=== PATIENT | male | born 1985 | race African-American/Black ===

== ENCOUNTER 2025-08-23 13:03 | Inpatient (IN) | payer OTHER, SELFPAY ==
[~2025-08-23] VITALS: Ht 188 cm; Wt 90.9 kg
[2025-08-23] MEDS: SODIUM CHLORIDE 0.9% 1,000 ML IV ONE (13:48)
[2025-08-23] MEDS: PANTOPRAZOLE SODIUM 40 MG/VIAL IVP ONE (13:48)
[2025-08-23 13:56] LABS: PLATELET COUNT (AUTO) 329 K/uL (150-450); RED BLOOD CELL COUNT(AUTO) 3.38 MIL/uL (4.50-5.90); RED CELL DISTRIBUTION WIDTH 18.8 % (11.5-14.5); WHITE BLOOD COUNT (AUTO) 4.2 K/uL (4.5-11.0)
[2025-08-23 14:02] LABS: CALCIUM, TOTAL 8.6 mg/dL (8.8-10.5); CREATININE 0.86 mg/dL (0.60-1.30); GLOMERULAR FILTR. RATE CALC > 60 mL/min (>60); GLUCOSE,RANDOM 87 mg/dL (70-110); SODIUM SERUM 135 mmol/L (136-145); UREA NITROGEN, BLOOD 12 mg/dL (7-18)
[2025-08-23 14:07] LABS: ASPARTATE AMINOTRANSFERASE 18.0 U/L (15-37); TOTAL PROTEIN, SERUM 6.8 g/dL (6.4-8.2)
[2025-08-23 14:09] LABS: APPEARANCE,URINE CLEAR (CLEAR); GLUCOSE, URINE (UA) NEGATIVE (NEGATIVE); LEUKOCYTE ESTERASE ,URINE NEGATIVE (NEGATIVE); NITRATE,URINE NEGATIVE (NEGATIVE); OCCULT BLOOD,URINE NEGATIVE (NEGATIVE); SPECIFIC GRAVITIY, URINE 1.012 (1.003-1.030)
[2025-08-23] MEDS ORDERED: ONDANSETRON HCL 4 MG/2 ML VIAL IVP PRN (17:15)
[2025-08-23 18:28] VITALS: BP 119/70; PULSE 64; RESP 18; TEMP 98; O2SAT 100
[2025-08-23] MEDS: MELATONIN 3 MG TABLET PO PRN (20:29)
[2025-08-23] MEDS: PANTOPRAZOLE SODIUM 40 MG/VIAL IVP SCH (20:29)
[2025-08-23] MEDS: ACETAMINOPHEN 325 MG TABLET PO PRN (20:30)
[2025-08-23 20:35] VITALS: BP 115/69; PULSE 71; RESP 18; TEMP 98.1; O2SAT 100
[2025-08-23] MEDS: POLYETHYLENE GLYCOL 3350 17 GM PACKET PO ONE (21:11)
[2025-08-24 05:46] VITALS: BP 109/60; PULSE 62; RESP 18; TEMP 98.6; O2SAT 98
[2025-08-24 07:20] VITALS: BP 100/58; PULSE 64; RESP 18; TEMP 98.2; O2SAT 99
[2025-08-24 07:53] LABS: PLATELET COUNT (AUTO) 287 K/uL (150-450); RED BLOOD CELL COUNT(AUTO) 2.97 MIL/uL (4.50-5.90); RED CELL DISTRIBUTION WIDTH 18.6 % (11.5-14.5); WHITE BLOOD COUNT (AUTO) 3.4 K/uL (4.5-11.0)
[2025-08-24 08:01] LABS: CALCIUM, TOTAL 8.1 mg/dL (8.8-10.5); CREATININE 0.72 mg/dL (0.60-1.30); GLOMERULAR FILTR. RATE CALC > 60 mL/min (>60); GLUCOSE,RANDOM 84 mg/dL (70-110); SODIUM SERUM 138 mmol/L (136-145); UREA NITROGEN, BLOOD 10 mg/dL (7-18)
[2025-08-24] MEDS: POLYETHYLENE GLYCOL 3350 17 GM PACKET PO SCH (08:41)
[2025-08-24] MEDS ORDERED: SODIUM CHLORIDE 0.9% 1,000 ML ONE (11:22)
[2025-08-24 11:23] VITALS: BP 123/68; PULSE 57; RESP 18; TEMP 97.7; O2SAT 100
[2025-08-24] MEDS ORDERED: PROPOFOL 1% 20 ML VIAL IVP ONE (12:00)
[2025-08-24] MEDS ORDERED: LIDOCAINE/PF 2% 5 ML VIAL ONE (12:00)
[2025-08-24] MEDS ORDERED: GLUCAGON,HUMAN RECOMBINANT 1 MG VIAL ONE (12:00)
[2025-08-24] MEDS: FERROUS GLUCONATE 324 MG TABLET PO SCH (12:00)
[2025-08-24] MEDS ORDERED: IOHEXOL 350 MG/ML 100 ML VIAL ONE (13:11)
[2025-08-24] MEDS ORDERED: SODIUM CHLORIDE 0.9% 500 ML IV ONE (13:14)
[2025-08-24 14:19] VITALS: BP 115/65; PULSE 49; RESP 18; TEMP 97.7; O2SAT 100
[2025-08-24] MEDS: PANTOPRAZOLE SODIUM 80 MG in SODIUM CHLORIDE 0.9% 100 ML IV SCH (14:21)
[2025-08-24] MEDS: DEXTROSE 5%-LACTATED RINGERS 1,000 ML IV SCH (14:21)
[2025-08-24] MEDS: ACETAMINOPHEN 650 MG/20.3 ML SOLUTION UDCUP PO PRN (17:48)
[2025-08-24 20:02] VITALS: BP 106/61; PULSE 58; RESP 17; TEMP 98.2; O2SAT 95
[2025-08-24] MEDS: SUCRALFATE 1 GM TABLET PO SCH (20:50)
[2025-08-24] MEDS: FLUCONAZOLE 200 MG/NACL ISOOSM 100 ML IV ONE (21:12)
[2025-08-24 23:21] VITALS: BP 112/64; PULSE 58; RESP 18; TEMP 98.4; O2SAT 98
[2025-08-25 03:16] VITALS: BP 119/52; PULSE 68; RESP 18; TEMP 98.6; O2SAT 100
[2025-08-25 06:47] LABS: PLATELET COUNT (AUTO) 304 K/uL (150-450); RED BLOOD CELL COUNT(AUTO) 3.05 MIL/uL (4.50-5.90); RED CELL DISTRIBUTION WIDTH 18.4 % (11.5-14.5); WHITE BLOOD COUNT (AUTO) 2.7 K/uL (4.5-11.0)
[2025-08-25 07:04] LABS: CALCIUM, TOTAL 8.0 mg/dL (8.8-10.5); CREATININE 0.71 mg/dL (0.60-1.30); GLOMERULAR FILTR. RATE CALC > 60 mL/min (>60); GLUCOSE,RANDOM 84 mg/dL (70-110); SODIUM SERUM 137 mmol/L (136-145); UREA NITROGEN, BLOOD 8 mg/dL (7-18)
[2025-08-25 08:00] VITALS: BP 133/59; PULSE 68; RESP 16; TEMP 99; O2SAT 100
[2025-08-25 12:07] VITALS: BP 106/55; PULSE 62; RESP 18; TEMP 99; O2SAT 99
[2025-08-25 16:54] VITALS: BP 123/66; PULSE 68; RESP 18; TEMP 98.2; O2SAT 100
[2025-08-25 20:57] VITALS: BP 101/52; PULSE 69; RESP 18; TEMP 98.4; O2SAT 100
[2025-08-25] MEDS: FLUCONAZOLE 100 MG/NACL ISOOSM 50 ML IV SCH (21:36)
[2025-08-26 00:05] VITALS: BP 107/70; PULSE 84; RESP 18; TEMP 98.8; O2SAT 98
[2025-08-26 04:28] VITALS: BP 113/58; PULSE 65; RESP 18; TEMP 98.1; O2SAT 98
[2025-08-26 08:33] VITALS: BP 131/70; PULSE 69; RESP 18; TEMP 98.2; O2SAT 97
[2025-08-26 11:04] VITALS: BP 113/58; PULSE 72; RESP 18; TEMP 98.5; O2SAT 99
[2025-08-26 12:27] LABS: PLATELET COUNT (AUTO) 314 K/uL (150-450); RED BLOOD CELL COUNT(AUTO) 3.23 MIL/uL (4.50-5.90); RED CELL DISTRIBUTION WIDTH 18.3 % (11.5-14.5); WHITE BLOOD COUNT (AUTO) 4.0 K/uL (4.5-11.0)
[2025-08-26] MEDS: MAGNESIUM HYDROXIDE SUSPENSION 30 ML UDCUP PO PRN (13:17)
[2025-08-26] MEDS: POLYETHYLENE GLYCOL 3350 17 GM PACKET PO PRN (13:17)
[2025-08-26] MEDS: PANTOPRAZOLE SODIUM 40 MG/VIAL IVP SCH (16:03)
[2025-08-26] MEDS: POLYETHYLENE GLYCOL 3350 17 GM PACKET PO ONE (16:03)
[2025-08-26] MEDS ORDERED: SUCR1TAB2 PO (16:16)
[2025-08-26] MEDS ORDERED: MELA3TAB89 PO (16:16)
[2025-08-26] MEDS ORDERED: POLY17PO47 PO (16:17)
[2025-08-26] MEDS ORDERED: PANT-31 PO (16:19)
[2025-08-26] MEDS ORDERED: DOCU-119 PO (16:19)
[2025-08-26] MEDS ORDERED: FLUC100T68 PO (16:21)
[2025-08-26] MEDS: ACETAMINOPHEN 325 MG TABLET PO PRN (20:32)
[2025-08-26 20:38] VITALS: BP 122/59; PULSE 83; RESP 16; TEMP 98.2; O2SAT 99
== END 2025-08-26 22:50 | DRG 378 ==
LOC: EMS 13:03 → EDH 16:05 → 4S 18:44 → 5N 08-24 13:51 → 6N 08-26 08:58 → 4S 08-26 09:59
PROVIDERS: ADMIT Internal Medicine; ATTEND Internal Medicine
PROC: 0DJ08ZZ Inspection of Upper Intestinal Tract, Via Natural or Artificial Opening Endoscopic (ICD-10-PCS; principal; 2025-08-24 12:00)
DX: K26.4 Chronic or unspecified duodenal ulcer with hemorrhage (principal); B37.81 Candidal esophagitis; J45.909 Unspecified asthma, uncomplicated; D62 Acute posthemorrhagic anemia; K29.70 Gastritis, unspecified, without bleeding; K59.00 Constipation, unspecified; G89.29 Other chronic pain
CPT/HCPCS: 74018; 74177; 80048; 80076; 81003; 83690; 83735; 85025; 86850; 86900; 86901; 93005; 96361; 96374; 99285; G0378; J1450; J1610; J2470; J2704; J3490; J7030; J7040; J7050; 36415-L1; 36415-TC